=== PATIENT | female | born 1950 | race Caucasian/White ===

== ENCOUNTER 2019-07-25 22:31 | Inpatient (IN) | payer MEDICAID, MEDICARE, OTHER ==
[~2019-07-25] VITALS: Ht 157.5 cm; Wt 74.4 kg
[2019-07-25 22:54] VITALS: Ht 157.5 cm; Wt 74.4 kg
--- NOTE | 2019-07-25 22:55 | NUR ---
PT PRESENTS TO ED BIBA WITH C/C HIGH BS READING AT HOME AND ALTERED EARLIER IN THE DAY. PT IS AAOX4. RESP E/U. DENIES PAIN. SKIN IS WARM AND NORMAL IN COLOR. PT HAS BUE AND BLE CONTRACTURES NOTED AND IS BED BOUND AT HOME FOR MANY YEARS DUE TO RHEUMATOID ARTHRITIS. FAMILY AT BEDSIDE. PER MEDIC PATIENT DENIES ANY SYMPTOMS. IV ESTABLISHED TO RIGHT WRIST EN ROUTE, FLUSHING WELL. CONNECTED TO FULL MONITOR. DR CEDEÑO AT BEDSIDE FOR MSE.
--- NOTE | 2019-07-25 23:05 | NUR ---
LAB AT BEDSIDE.
[2019-07-25 23:21] LABS: BASOPHIL % 0.5 % (0-2); PLATELET COUNT 364 x10^3mcL (130-400); RED CELL DISTRIBUTION WIDTH 13.8 % (11.5-14.5)
[2019-07-25 23:26] LABS: ALKALINE PHOSPHATASE 76 U/L (46-116); ALT/SGPT 19 U/L (14-59); AST/SGOT 17 U/L (15-37); CALCIUM 7.9 mg/dL (8.5-10.1); CARBON DIOXIDE 23.6 mmol/L (21-32); CHLORIDE SERUM 80 mmol/L (98-107); CREATININE SERUM 0.6 mg/dL (0.6-1.0); GFR1 > 60 mL/min; GLUCOSE SERUM 355 mg/dL (74-106); POTASSIUM SERUM 3.8 mmol/L (3.5-5.1); TOTAL PROTEIN, SERUM 7.5 g/dL (6.4-8.2)
--- NOTE | 2019-07-25 23:27 | NUR ---
XRAY AT BEDSIDE.
[2019-07-25 23:29] LABS: ALBUMIN 2.8 g/dL (3.4-5.0)
[2019-07-25 23:36] LABS: SODIUM SERUM 112 mmol/L (136-145)
--- NOTE | 2019-07-25 23:47 | NUR ---
SEIZURE PREC INITIATED.
--- NOTE | 2019-07-26 01:54 | NUR ---
PT REPOSITIONED TO POSITION OF COMFORT. DENIES PAIN AT THIS TIME. WILL CONTINUE TO MONITOR.
--- NOTE | 2019-07-26 02:19 | NUR ---
REPORT CALLED AND GIVEN TO RICK BORJA TO ASSUME CARE AT THIS TIME.
[2019-07-26 03:52] VITALS: BP 152/65
--- NOTE | 2019-07-26 04:52 | NUR ---
RECEIVED PT FROM ED VIA NICHO ACCOMPANIED BY AN RN.PT CAME DUE TO ALTERED MENTAL STATUS AND WEAKNESS. AAOX4.ESTONIAN SPEAKING. ABLE TO FOLLOW COMMANDS. LUNG SOUND CTA. BREATHING EVEN AND UNLABORED.TELE#6 SR. BOWEL SOUNDS ACTIVE.ABDOMEN ROUND AND NONTENDER.RASHES AND REDNESS TO BUE AND BLE.OPEN WOUND TO UMBILICUS AND RIGHT BUTTOCK AREA. BLANCHABLE REDNESS TO BUTTOCKS. BED IN LOWEST POSITION,CALL LIGHT WITHIN REACH. WILL CONTINUE TO MONITOR.
[2019-07-26 05:11] VITALS: BP 132/57
--- NOTE | 2019-07-26 06:11 | NUR ---
PT APPEARS TO BE SLEEPING. NO DISTRESS NOTED. NO C/O PAIN AT THIS TIME. BED IN LOWEST POSITION,CALL LIGHT WITHIN REACH. WILL CONTINUE TO MONITOR.
[2019-07-26 06:48] LABS: BASOPHIL % 0.4 % (0-2); PLATELET COUNT 324 x10^3mcL (130-400); RED CELL DISTRIBUTION WIDTH 13.7 % (11.5-14.5)
[2019-07-26 07:00] LABS: CALCIUM 7.3 mg/dL (8.5-10.1); CARBON DIOXIDE 21.5 mmol/L (21-32); CHLORIDE SERUM 94 mmol/L (98-107); CREATININE SERUM 0.5 mg/dL (0.6-1.0); GFR1 > 60 mL/min; GLUCOSE SERUM 242 mg/dL (74-106); MAGNESIUM 1.8 mg/dL (1.8-2.4); PHOSPHOROUS 2.2 mg/dL (2.5-4.9); POTASSIUM SERUM 3.3 mmol/L (3.5-5.1); SODIUM SERUM 125 mmol/L (136-145)
--- NOTE | 2019-07-26 07:30 | NUR ---
PATIENT IS A&OX4, COOPERATES WELL AND FOLLOWS COMMANDS. TELE #6 NSR, PERIPEHRAL PULSES PALPABLE W/ NO SIGNS OF EDEMA. LUNG SOUNDS CTA BILATERALLY, ON RA, O2 SAT 97%. NORMOACTIVE BSX4, IS A FEEDER. VOIDS WELL. CONTRACTURES ON BUE AND BLE. OPEN WOUND TO UMBILICAL AREA & RIGHT BUTTOCKS. NLANCHABLE REDNESS TO BUTTOCKS. RASHES TO BUE AND BLE. SKIN IS OTHERWISE CDI. NO PAIN. IV SITE IS CDI. WILL CONTINUE TO MONITOR.
--- NOTE | 2019-07-26 07:32 | NUR ---
CARE ENDORSED TO RICK DESAI.
[2019-07-26 08:46] VITALS: BP 141/58
[2019-07-26 13:04] VITALS: BP 141/69
[2019-07-26 14:22] LABS: CALCIUM 7.7 mg/dL (8.5-10.1); CARBON DIOXIDE 23.1 mmol/L (21-32); CHLORIDE SERUM 91 mmol/L (98-107); CREATININE SERUM 0.6 mg/dL (0.6-1.0); GFR1 > 60 mL/min; GLUCOSE SERUM 274 mg/dL (74-106); POTASSIUM SERUM 3.3 mmol/L (3.5-5.1)
[2019-07-26 14:28] LABS: SODIUM SERUM 119 mmol/L (136-145)
--- NOTE | 2019-07-26 14:45 | NUR ---
NA 119 WAS REPORTED TO THE MD. NO FURTHER ORDERS AT THIS TIME.
--- NOTE | 2019-07-26 15:32 | NUR ---
REPORTED TO MD THAT POTASSIUM WAS 3.2. MD ORDERED POTASSIUM IV FLUID. NO FURTHER ORDERS AT THIS TIME.
--- NOTE | 2019-07-26 15:55 | NUR ---
A NEW IV WAS PLACED. IV IN THE RFA IS PATENT AND FLUSHES WELL. PREVIOUS IV CATHETER WAS REMOVED ACCIDENTALLY BY THE PATIENT AT 1400. IV CATHETER WAS INTACT AND DISPOSED OF.
--- NOTE | 2019-07-26 16:01 | NUR ---
DR. SARAVIA, NEPHROLOGY, SPOKE TO RN AND ORDERED FOR SERTRALINE TO NOT BE GIVEN FOR IT LOWERS SODIUM LEVELS. MD ALSO ORDERED SODIUM TO BE CHECKED IN FOUR HOURS, AND FOR SODIUM TO BE RECHECKED EVERY 4 HOURS FOR 24 HOURS.
[2019-07-26 17:06] VITALS: BP 138/60
--- NOTE | 2019-07-26 17:57 | NUR ---
PATIENT IS A&OX4, FOLLOWS COMMANDS AND COOPERATES WELL. PATIENT IS CURRENTLY BEING FED DINNER BY SON. PATIENT DENIES ANY PAIN OR DISCOMFORT AT THIS TIME. POTASSIUM IV IS RUNNING AT THIS TIME. ALL QUESTIONS AND CONCERNS HAVE BEEN ADDRESSED AT THIS TIME. WILL CONTINUE TO MONITOR.
--- NOTE | 2019-07-26 19:10 | NUR ---
PATIENT WAS SEEN RESTING IN BED WITH FAMILY AT BEDSIDE. NO DISTRESS NOTED. BREATHING EVEN AND UNLABORED ON ROOM AIR. NO SOB OR RESP DISTRESS NOTED. NO C/O PAIN. DENIES CHEST PAIN/PRESSURE. IV TO THE RW. PATENT AND INTACT. NO REDNESS OR SWELLING NOTED. ON STRICT I/O. BUE/BLE CONTRACTURES. COMFORT AND SAFETY MEASURES IN PLACE. BED IS LOCKED AND IN THE LOWEST POSITION. SIDE RAILS UP X2. CALL LIGHT IS WITHIN REACH. WILL CONTINUE TO MONITOR.
[2019-07-26 20:54] VITALS: BP 155/65
--- NOTE | 2019-07-26 21:00 | NUR ---
NOTIFIED DR KATE ABOUT CRITICAL LAB; NA 124. TRENDING UP. NO CHANGES IN ORDERS. WILL CONTINUE TO MONITOR
[2019-07-26 22:52] LABS: UA SPECIFIC GRAVITY >=1.030 (1.005-1.035); microscopic required? YES; urine erythrocyte 1+ (NEGATIVE)
[2019-07-26 23:01] LABS: AMPHETAMINE QUAL UR NONE DETECTED (See below)
--- NOTE | 2019-07-27 00:45 | NUR ---
NOTIFIED DR KATE THAT UA IS POSITIVE FOR YEAST.
--- NOTE | 2019-07-27 02:14 | NUR ---
RESTING IN BED W/ EYES CLOSED. NO DISTRESS NOTED. BREATHING EVEN AND UNLABORED ON ROOM AIR. NO SOB NOTED. NO S/S OF PAIN NOTED. SAFETY MEASURES IN PLACE. CALL LIGHT IS WITHIN REACH. WILL CONTINUE TO MONITOR.
[2019-07-27 05:26] VITALS: BP 157/71
--- NOTE | 2019-07-27 06:10 | NUR ---
AIR MATTRESS AVAILABLE AND IN PATIENT'S ROOM. PATIENT'S SON WAITED TO ASSIST HER ONTO AIR MATTRESS WHEN HE COMES AND VISITS THIS MORNING.
[2019-07-27 06:44] LABS: BASOPHIL % 0.3 % (0-2); PLATELET COUNT 348 x10^3mcL (130-400); RED CELL DISTRIBUTION WIDTH 13.9 % (11.5-14.5)
--- NOTE | 2019-07-27 06:54 | NUR ---
RESTING IN LONG INTERVALS THROUGHOUT THE NIGHT. NO ACUTE CHANGES NOTED. BREATHING EVEN AND UNLABORED ON ROOM AIR. NO SOB NOTED. DENIES CHEST PAIN. IV TO THE RFA. SALINE LOCK. NO C/O PAIN. WHENING CLEANING PATIENT. NO WOUNDS NOTED TO LEFT SIDE. ALL NEEDS AND CONCERNS ADDRESSED. SAFETY MEASURES IN PLACE. AIR MATTRESS AT BEDSIDE. CALL LIGHT IS WITHIN REACH. WILL ENDORSE CARE TO DAY SHIFT RN.
[2019-07-27 07:23] LABS: CALCIUM 7.9 mg/dL (8.5-10.1); CARBON DIOXIDE 25.6 mmol/L (21-32); CHLORIDE SERUM 90 mmol/L (98-107); CREATININE SERUM 0.4 mg/dL (0.6-1.0); GFR1 > 60 mL/min; GLUCOSE SERUM 180 mg/dL (74-106); MAGNESIUM 1.8 mg/dL (1.8-2.4); PHOSPHOROUS 1.7 mg/dL (2.5-4.9); POTASSIUM SERUM 3.6 mmol/L (3.5-5.1)
[2019-07-27 07:37] LABS: SODIUM SERUM 121 mmol/L (136-145)
--- NOTE | 2019-07-27 08:00 | NUR ---
RESTING COMFORTABLY. BREATHING FREELY ON RA. DENIES PAIN AT THIS TIME. TELE # 13 NSR. [facility] PAN CLEANER WILL SPOON FEED PT. TOTAL CARE. SZ PRECAUTIONS IN PLACE FOR LOW SODIUM. SL TO LEFT HAND PATENT. BED INLOW POSITION. HOB SLIGHTLY ELEVATED. CALL LIGHT WITHIN REACH.
[2019-07-27 09:41] VITALS: BP 149/62
[2019-07-27 12:38] VITALS: BP 159/59
--- NOTE | 2019-07-27 14:06 | NUR ---
PTS KALYN BARBOSA AT BEDSIDE. SPOON FED PT LUNCH. GAVE BED BATH AND TURNS AND REPOSITIONS PT.
[2019-07-27 16:32] VITALS: BP 134/49
--- NOTE | 2019-07-27 18:07 | NUR ---
RESTING COMFORTABLY. KALYN BARBOSA HAS BEEN AT BEDSIDE MOST OF SHIFT ATTENDING TO PTS NEEDS. SPOON FED PT DINNER. ZOFRAN ADMIN X 1 WITH GOOD EFFECT. CONTINUES ON LEVAQUIN IV ABX. FLUID RESTRICTION OF 1000 ML DAILY IN EFFECT. IV HL'D. ON AIR MATTRESS CALL LIGHT WITHIN REACH.
--- NOTE | 2019-07-27 19:15 | NUR ---
PT RECEIVED A/O X4, PRIMARILY GEORGIAN SPEAKING, ABLE TO MAKE NEEDS KNOWN, SEIZURE PRECAUTIONS MAINTAINED. TELE #6, NSR, PT DENIES ANY CP/PRESSURE. PULSES PALPABLE, NO EDEMA PRESENT. BREATHING IS EVEN AND UNLABORED ON RA, NO RESP DISTRESS OBSERVED. ABD SOFT AND ROUND, PT DENIES ANY N/V. VOIDS FREELY, PT HAS EPISODES OF URINARY INCONTINENCE, STRICT I&O OF 1000 ML/DAY. GENERALIZED WEAKNESS, BED BOUND, ON AIR MATTRESS, CONTRACTURES NOTED TO BUE AND BLE. GENERALIZED RASH NOTED TO BODY, SKIN TEAR TO LEFT SIDE OF BACK, ERYTHEMA NOTED TO BUTTOCKS AND GROIN AREA. PT DENIES HAVING ANY PAIN AT THIS TIME. SL TO RFA, PATENT AND INTACT, SITE WNL. NO ACUTE DISTRESS NOTED. FAMILY AT BEDSIDE. BED IN LOWEST SETTING, SIDE RAILS UP X2, CALL LIGHT WITHIN REACH. WILL CONT TO MONITOR.
[2019-07-27 20:37] VITALS: BP 151/71
--- NOTE | 2019-07-28 00:04 | NUR ---
PT RESTING IN BED WITH EYES CLOSED, BUT IS EASILY AROUSABLE. BREATHING IS EVEN AND UNLABORED, NO RESP DISTRESS NOTED. NO S/S OF PAIN OBSERVED. IV INTACT. NO ACUTE DISTRES OBSERVED. CALL LIGHT WITHIN REACH. WILL CONT TO MONITOR.
--- NOTE | 2019-07-28 01:28 | NUR ---
PT'S URINE CX (+) FOR YEAST, DR MONSALVE MADE AWARE. AWAITING ORDERS AT THIS TIME.
--- NOTE | 2019-07-28 02:35 | NUR ---
RBS-56, REPEAT BS-59. PT IS ASYMPTOMATIC AND IN NO ACUTE DISTRESS. D50 IVP GIVEN ORDERED. BS AFTER D50-131. PT INCONTINENT OF URINE, PT CLEANED AND REPOSITIONED. NO ACUTE DISTRESS OBSERVED. CALL LIGHT WITHIN REACH. WILL CONT TO MONITOR.
[2019-07-28 06:01] VITALS: BP 129/62
--- NOTE | 2019-07-28 06:09 | NUR ---
PT'S BS-54, RECHECKED BS-56. PT IS ASYMPTOMATIC AND DENIES HAVING ANY S/S OF HYPOGLYCEMIA. PROTOCOL INITIATED. D50 IVP GIVEN ORDERED. DR MONSALVE MADE AWARE. PT IN NO ACUTE DISTRESS. WILL REASSESS BS.
[2019-07-28 06:21] LABS: BASOPHIL % 0.5 % (0-2); PLATELET COUNT 377 x10^3mcL (130-400); RED CELL DISTRIBUTION WIDTH 13.6 % (11.5-14.5)
[2019-07-28 06:39] LABS: CARBON DIOXIDE 25.2 mmol/L (21-32); CHLORIDE SERUM 91 mmol/L (98-107); CREATININE SERUM 0.4 mg/dL (0.6-1.0); GFR1 > 60 mL/min; POTASSIUM SERUM 3.5 mmol/L (3.5-5.1); SODIUM SERUM 125 mmol/L (136-145)
--- NOTE | 2019-07-28 06:46 | NUR ---
PT SLEPT WELL THROUGHOUT THE EVENING. BREATHING IS EVEN AND UNLABORED, NO RESP DISTRESS NOTED. PT DENIES HAVING ANY PAIN AT THIS TIME. PT HAD HYPOGLYCEMIC EPISODES DURING THE NIGHT, PROTOCOL INITIATED, RESIDENT AWARE. BS FOLLOWING D50 ADMINISTRATION-166. NO OTHER ACUTE CHANGES ENCOUNTERED DURING SHIFT. ALL NEEDS MET AND ANTICIPATED. CALL LIGHT WITHIN REACH. WILL ENDORSE CARE TO AM NURSE.
[2019-07-28 07:03] LABS: GLUCOSE SERUM 52 mg/dL (74-106)
--- NOTE | 2019-07-28 07:54 | NUR ---
RECEIVED PATIENT FROM RICK Pina PATIENT IN BED AT THIS TIME. ON HER L SIDE PREFERRED BY PATIENT AND FAMILY. SPOKE TO PATIENT ABOUT PLAN FOR TODAY AND WILL WATCH FOR HER BLOOD SUGAR. WILL WAIT FOR FLAME BRAZING MACHINE OPERATOR TO COME IN AND SPEAK WITH PATIENT ABOUT CURRENT PLAN. CALL LIGHT IN REACH, PATIENT KNOWS TO BE ON FLUID RESTRICTION FOR TODAY.
[2019-07-28 08:18] VITALS: BP 132/61
--- NOTE | 2019-07-28 09:33 | NUR ---
SERGIO HANSEN IN TO SEE PATIENT. STATES LIKELY TO STAY DUE TO CONTINUED HYPONATREMIA.
--- NOTE | 2019-07-28 10:36 | NUR ---
PATIENT SON CHELSEY AT BEDSIDE. UPDATED SON TO PLAN OF CARE AND SODIUM LEVELS AND BLOOD GLUCOSE LEVELS. SON VERBALIZES UNDERSTANDING AND STATES HE WOULD LIKE TO SPEAK WITH SERGIO HANSEN. SERGIO HANSEN AT NURSES STATION AND ASKED IF SHE COULD COME SPEAK WITH SON AND PATIENT AGAIN. SERGIO HANSEN STATES THAT SHE HAD ALREADY SPOKE TO PATIENT AND THAT SHE WILL NOT BE DISCHARGED TODAY. PATIENT SON CONTINUES TO HAVE CONCERNS AND STATES THAT "NOBODY HAS COME IN TO SPEAK WITH FAMILY FOR THE PAST TWO DAYS", AND THAT "IF HE NEEDS TO SPEAK WITH [SERGIO PANTOJA] LAMINATED PLASTICS ASSEMBLER AND GLUER, HE WILL".
--- NOTE | 2019-07-28 12:30 | NUR ---
STARCH COOKER TYRONE IN TO SPEAK WITH PATIENT SON AND PARTNER. EXPLAINED TO SON COURSE OF CARE DURING THIS HOSPITAL STAY. ALL QUESTIONS ADDRESSED AT THIS TIME. SON CONCERNS ABOUT MEDICATIONS ADDRESSED AND MEDICATIONS ADJUSTED BY SERGIO HANSEN. BS FOR LUNCH IS 76. CALL LIGHT IN REACH.
[2019-07-28 13:14] VITALS: BP 134/59
--- NOTE | 2019-07-28 15:15 | NUR ---
SCREEN FOR LOW CHARLINE SCALE AT RISK, MAD TO LOWER ABDOMINAL WALL AND FOLD, LEFT AND RIGHT INNER BUTTOCKS, PER SON NEW SKIN PROBLEM NOTICE A BLISTER TO LEFT FLANK YESTERDAY, TODAY, LEFT FLANK SKIN ALTERATION OPEN BLISTER WITH WOUND BED 100% PINK, 2X2CM SUPERFICIAL DEPTH, RENITA-WOUND SKIN DRY AND INTACT. NO S/S OF INFECTION. RECOMMEND TO CLEANSE WITH NS. PAT DRY, APPLY VERSATEL DRESSING AND CHANGE Q7 DAYS AND PRN IF SOILING. CONTINUE ALL PRESSURE ULCERS PREVENTION MEASURES: -APPLY Z GUARD TO MOISTURE ASSOCIATED DERMATITIS (MAD) AREAS BID AND LITHOGRAPH PRESS OPERATOR -TURN AND REPOSITION PATIENT Q 2H -ASSESS AND MONITOR SKIN CONDITION DURING POSITION CHANGE -OFFLOAD BILATERAL HEELS BY PLACING PILLOWS UNDER CALVES AT ALL TIMES, UNLESS OTHERWISE CONTRAINDICATED -PRESSURE REDISTRIBUTION SURFACE THERAPY -KEEP SKIN CLEAN AND DRY AT ALL TIMES ALL ABOVE POC DISCUSSED WITH SON AND PRIMARY RN, SON VERBALIZS UNDERSTANDING
--- NOTE | 2019-07-28 15:23 | NUR ---
WOUND CARE NURSE GHAZAL IN TO EVAL PATIENT. PATIENT CONTINUES TO HAVE 2X2 IN SKIN TEAR TO L CHEST. INSTRUCTED PATIENT SON ABOUT TURNING AND HOME REMEDIES TO KEEP SKIN INTACT. PATIENT SON VERBALIZES UNDERSTANDING AND ALL QUESTIONS ADDRESSED AT THIS TIME. PATIENT QUESTIONS ALSO ADDRESSED AT THIS TIME AND AWARE THE NEED TO OFFLOAD PRESSURE OF HER LEFT SIDE.
[2019-07-28 17:00] VITALS: BP 137/60
--- NOTE | 2019-07-28 17:05 | NUR ---
PATIENT IN BED AT THIS TIME, NO COMPLAINTS OF PAIN. NO ADDITIONAL QUESTIONS FROM PATIENT OR SON. WILL CONTINUE TO REINFORCE DIABETIC TEACHING. CALL LIGHT IN REACH.
--- NOTE | 2019-07-28 19:05 | NUR ---
PT RECEIVED A/O X4, PRIMARILY IRISH SPEAKING, ABLE TO MAKE NEEDS KNOWN, SEIZURE PRECAUTIONS MAINTAINED. TELE #6, NSR, PT DENIES ANY CP/PRESSURE. PULSES PALPABLE, NO EDEMA PRESENT. BREATHING IS EVEN AND UNLABORED ON RA, NO RESP DISTRESS OBSERVED. ABD SOFT AND ROUND, PT DENIES ANY N/V. VOIDS FREELY, EPISODES OF URINARY INCONTINENCE, STRICT I&O. GENERALIZED WEAKNESS, BED BOUND, ON AIR MATTRESS, CONTRACTURES NOTED TO BUE AND BLE. GENERALIZED RASH NOTED TO BODY, SKIN TEAR TO LEFT SIDE OF BACK WITH VERSATEL IN PLACE, ERYTHEMA NOTED TO BUTTOCKS AND GROIN AREA. PT DENIES HAVING ANY PAIN AT THIS TIME. SL TO RFA, PATENT AND INTACT, SITE WNL. NO ACUTE DISTRESS NOTED. FAMILY AT BEDSIDE. BED IN LOWEST SETTING, SIDE RAILS UP X2, CALL LIGHT WITHIN REACH. WILL CONT TO MONITOR.
[2019-07-28 21:14] VITALS: BP 141/60
--- NOTE | 2019-07-29 01:00 | NUR ---
PT RESTING IN BED WITH EYES CLOSED, BUT IS EASILY AROUSABLE. BREATHING IS EVEN AND UNLABORED, NO RESP DISTRESS NOTED. PT DENIES HAVING ANY PAIN AT THIS TIME. PT INCONTINENT OF URINE, PT CLEANED, GOWN AND LINENS CHANGED. ATTEMPTED TO REPOSITION PT, PT REFUSED TO BE REPOSITIONED AND STATES SHE FAVORS HER LEFT SIDE. EDUCATED PT ON IMPORTANCE OF REPOSITIONING AND SKIN BREAKDOWN, PT VERBALIZES UNDERSTANDING. PT AGREEABLE TO REPOSITIONING TO THE RIGHT SIDE FOR ONLY 30 MINUTES THEN WOULD LIKE TO BE REPOSITIONED BACK TO LEFT SIDE. SL INTACT. NO ACUTE DISTRESS NOTED. WILL CONT TO MONITOR.
[2019-07-29 06:08] VITALS: BP 124/57
[2019-07-29 06:21] LABS: BASOPHIL % 0.7 % (0-2); PLATELET COUNT 369 x10^3mcL (130-400); RED CELL DISTRIBUTION WIDTH 14.2 % (11.5-14.5)
[2019-07-29 06:35] LABS: CALCIUM 8.1 mg/dL (8.5-10.1); CARBON DIOXIDE 25.7 mmol/L (21-32); CHLORIDE SERUM 95 mmol/L (98-107); CREATININE SERUM 0.4 mg/dL (0.6-1.0); GFR1 > 60 mL/min; GLUCOSE SERUM 112 mg/dL (74-106); PHOSPHOROUS 2.4 mg/dL (2.5-4.9); POTASSIUM SERUM 3.5 mmol/L (3.5-5.1); SODIUM SERUM 129 mmol/L (136-145)
--- NOTE | 2019-07-29 07:10 | NUR ---
RECIEVED PT RESTING IN BED WITH NO C/O PAIN OR DISTRESS. A/O X4 WITH NO CHERY OR DIZZINESS. TELE#6 CONNECTED TO PT, DENIES ANY CP OR PRESSURE. LUNGS CTAB. RFA IV CDI/PATENT. SAFETY PRECAUTION SIN PLACE, CALL LIGHT WITHIN REACH, WILL MONITOR.
[2019-07-29 09:35] VITALS: BP 145/62
[2019-07-29] MEDS ORDERED: LEVAQUIN500 M1 PO (10:33)
[2019-07-29] MEDS ORDERED: SOD1 PO (10:34)
[2019-07-29] MEDS ORDERED: DIA5 PO (10:35)
[2019-07-29] MEDS ORDERED: MEG40 PO (10:36)
[2019-07-29] MEDS ORDERED: COZ25 PO (10:36)
[2019-07-29 11:00] VITALS: BP 145/62
--- NOTE | 2019-07-29 11:00 | NUR ---
PT STABLE WITH C/O PAIN OR DISTRESS. FAMILY AT BEDSIDE. SAFETY PRECAUTIONS IN PLACE, CALL LIGHT WITHIN REACH, WILL CONTINUE TO MONITOR.
--- NOTE | 2019-07-29 13:37 | NUR ---
Initial Nutrition Assessment: 210T/B MARICEL PRINCE IA HR Dx: AMS, metabolic encephalopathy PMHx: 68 years old female with PMH of DM, HTN, and Rheumatoid arthritis who brought from home to ED due to altered mental status PSHx: None Labs: NA 129L, BG 112H, BUN 6.0L, ALB 2.8L, A1C 11.1H, P 2.4L Meds: Colace, cozaar, D 50%, Humulin, Levaquin, megace, norco, NS, Zofran Diet: CCHO PO intake since admission: (07/28) dinner 100%, lunch 80%, breakfast 70%, (07/27) dinner 60%, lunch 50%, breakfast 80% Ht: 157.48 cm (62") Wt: 74.3 kg (163#) BMI: 30 kg/m2 Bed scale: 163# IBW: 110# (50 kg) %IBW: 148 UBW: 163# Age: 68/F Food Allergies: NKFA Skin: skin tear around umbilical area, blanchable redness to buttock Vikram: 11 Edema: none GI: Last BM: 07/27 Per H&P, Pt is a 68 years old female with PMH of DM, HTN, and Rheumatoid arthritis who brought from home to ED due to altered mental status. RD Note (07/29): Patient was alert with daughter at bedside. Patient is Cambodian speaking. Patient denied any N/V/D/C at this time and she said that she ate 100% breakfast this morning. Per progress note (07/28), Patient noted to have slight confusion with lethary. Na + level is 125 today. Per nephro recommendations NaCl 2g/day with increase of food and fluid restriction of 1.5L /day. Patient continues to be treated for acute UTI with moderate bacteria. Problem with: N/V/D/C: none per patient Problems with: Chewing: Swallowing: none Current appetite: good Recent wt change: none %wt change: n/a Vitamin/Supplement use: none Special diet at home: Diabetic as per patient, sometimes Physical activity: pt unable to ambulate Nutrition education given: Diabetic diet education was provided. High fiber diet was emphasized. Food-drug interactions: none Education given: n/a Estimated Nutritional Needs Based on adjusted body weight (56 kg) Energy: 9766-1231 kcal/day (25-30 kcal/kg for maintenance) Protein: 56-67 g/day (1.0-1.2 g/kg for maintenance) Fluid: 3408-8567 mL/day (1 mL/kcal) Nutrition Diagnosis: 1. Limited adherence to nutrition related recommendations related to reluctance to need to change as evidenced by A1C 11.1 Intervention 1. Recommend continuing CCHO diet. Monitor/Evaluate Goal: PO intake at least 75% of estimated needs Monitor: PO intake, Labs, GI function F/U in 3-5 days as moderate risk 08/01-
--- NOTE | 2019-07-29 13:37 | NUR ---
1. Recommend continuing [facility] [place] diet.
[2019-07-29 13:39] VITALS: BP 131/59
[2019-07-29 17:12] VITALS: BP 152/68
--- NOTE | 2019-07-29 19:26 | NUR ---
PT STABLE FOR DISCHARGE PER MD ORDER. ALL DISCHARGE INSTRUCTIONS, EDUCATION, WOUND SUPPLIES, AND PRESCRIPTIONS GIVEN TO FAMILY AND PT, BOTH VDERBALIZE UNDERSTANDING. IV REMOVED WITH CATHETER INTACT, NO REDNESS OR INFLAMMATION NOTED TO SITE.ID BAND REMOVED FROM PT ARM AND TELE BOX RETURNED TO [place]. PT TO BE TAKEN DOWN VIA TRANSPORTATION COMPANY PROVIDED BY FAMILY. ALL BELONGINGS IN HAND.
== END 2019-07-29 20:00 | disposition home health service (06) | DRG 720 ==
LOC: ED 22:31 → DU 07-26 01:59
PROVIDERS: Emergency Medicine; Internal Medicine Nephrology; ADMIT Internal Medicine
DX: A41.9 Sepsis, unspecified organism (principal); E43 Unspecified severe protein-calorie malnutrition; G93.41 Metabolic encephalopathy; E87.1 Hypo-osmolality and hyponatremia; E11.65 Type 2 diabetes mellitus with hyperglycemia; N39.0 Urinary tract infection, site not specified; M06.9 Rheumatoid arthritis, unspecified; I10 Essential (primary) hypertension; E87.8 Other disorders of electrolyte and fluid balance, not elsewhere classified; Z99.3 Dependence on wheelchair; Z68.32 Body mass index [BMI] 32.0-32.9, adult; Z79.84 Long term (current) use of oral hypoglycemic drugs; Z91.14 Patient's other noncompliance with medication regimen
CPT/HCPCS: 82962; 83880; 87804; 90658; 90732; G0378; J1815; J1956; J2405; J3480; J3490; J7030; J7042; J7050; J7060; Q0092